=== PATIENT | female | born 1965 | race African-American/Black ===

== ENCOUNTER 2019-03-04 11:02 | Emergency (ER) | payer MEDICAID ==
[~2019-03-04] VITALS: Ht 160 cm; Wt 79.0 kg
[2019-03-04] MEDS ORDERED: ALBUTEROL (0.083%) 2.5MG/3ML NEB HHN STA (11:38)
[2019-03-04] MEDS ORDERED: METHYLPREDNISOLONE SOD SUCC 125 MG/2 ML VIAL IV STA (11:38)
[2019-03-04] MEDS ORDERED: IPRATROPIUM BROMIDE (0.02%) 0.5MG/2.5ML NEB HHN STA (11:38)
[2019-03-04 12:26] LABS: CHLORIDE 108 mEq/L (98-107)
[2019-03-04 13:00] VITALS: BP 140/80
[2019-03-04 13:14] LABS: BASOPHILS % 0.5 % (0.0-2.0); EOSINOPHILS % 2.8 % (0.0-5.0); HEMATOCRIT. 43.7 % (36.0-48.0); HEMOGLOBIN. 14.5 g/dL (12.0-16.0); LYMPHOCYTES % 42.8 % (20.0-50.0); MEAN CORPUSCULAR HEMOGLOBIN 28.5 pg (28.0-32.0); MEAN PLATELET VOLUME 8.4 fl (7.4-10.4); MONOCYTES % 6.4 % (2.0-8.0); NEUTROPHILS % 47.5 % (40.0-76.0); PLATELET 244 x1000/uL (130-400); RED BLOOD CELL COUNT 5.09 mill/uL (4.2-5.4); RED CELL DISTRIBUTION WIDTH 14.2 % (11.6-14.6)
== END 2019-03-04 14:51 | disposition home or self-care (01) ==
LOC: ER 11:02
DX: J45.901 Unspecified asthma with (acute) exacerbation (principal); F17.210 Nicotine dependence, cigarettes, uncomplicated; Z71.6 Tobacco abuse counseling
CPT/HCPCS: 36415; 71045; 80053; 85025; 93005; 94640; 96374; 99284; 99406; J2930; J7611

== ENCOUNTER 2019-03-08 06:12 | Emergency (ER) | payer MEDICAID ==
[~2019-03-08] VITALS: Ht 160 cm; Wt 79.0 kg
[2019-03-08] MEDS ORDERED: KETOROLAC 60MG/2ML VIAL IM ONE (06:45)
[2019-03-08 07:58] VITALS: BP 137/95
== END 2019-03-08 08:10 | disposition home or self-care (01) ==
LOC: ER 06:12
DX: J40 Bronchitis, not specified as acute or chronic (principal)
CPT/HCPCS: 96372; 99283; J1885; Z7610

== ENCOUNTER 2023-11-19 11:23 | Emergency (ER) | payer MEDICAID ==
[~2023-11-19] VITALS: Ht 165.1 cm; Wt 91.0 kg
[2023-11-19 11:37] VITALS: BP 132/82; PULSE 83; RESP 16; TEMP 98.5; O2SAT 97
[2023-11-19] MEDS ORDERED: NAPR500T7 MT (13:13)
== END 2023-11-19 14:12 | disposition home or self-care (01) ==
LOC: ER 11:23
DX: M79.674 Pain in right toe(s) (principal)
CPT/HCPCS: 99282

== ENCOUNTER 2025-06-21 16:05 | Emergency (ER) | payer MEDICAID, OTHER ==
[~2025-06-21] VITALS: Ht 160 cm; Wt 80.0 kg
[~2025-06-21 16:05] MED LIST: NAPR-1486 MT
[2025-06-21 16:19] VITALS: O2SAT 99
[2025-06-21] MEDS: MECLIZINE 25MG TABLET PO ONE (17:37)
[2025-06-21] MEDS: ACETAMINOPHEN 325MG TABLET PO ONE (17:52)
[2025-06-21 18:34] LABS: BASOPHILS % 0.9 % (0.0-2.0); EOSINOPHILS % 2.4 % (0.0-5.0); HEMATOCRIT. 42.4 % (36.0-48.0); HEMOGLOBIN. 14.0 g/dL (12.0-16.0); LYMPHOCYTES % 47.5 % (20.0-50.0); MEAN PLATELET VOLUME 8.0 fl (7.4-10.4); MONOCYTES % 8.9 % (2.0-8.0); NEUTROPHILS % 40.3 % (40.0-76.0); PLATELET 228 x1000/uL (130-400); RED BLOOD CELL COUNT 4.86 mill/uL (4.2-5.4); RED CELL DISTRIBUTION WIDTH 14.1 % (11.6-14.6)
[2025-06-21 18:46] LABS: CREATININE 1.1 mg/dL (0.6-1.0); UREA NITROGEN BLOOD 18 mg/dL (9-23)
[2025-06-21 18:47] LABS: TROPONIN I HIGH SENSITIVITY < 4 ng/L (3.0-34)
[2025-06-21 21:05] LABS: COLOR URINE YELLOW (YELLOW); GLUCOSE URINE NEGATIVE (NEGATIVE); KETONES URINE TRACE (NEGATIVE); LEUKOCYTE ESTERASE URINE 1+ (NEGATIVE); NITRITE URINE NEGATIVE (NEGATIVE); OCCULT BLOOD URINE NEGATIVE (NEGATIVE); PH URINE 5.0 (4.5-8.0); PROTEIN URINE NEGATIVE (NEGATIVE); SPECIFIC GRAVITY URINE 1.033 (1.005-1.030); UROBILINOGEN URINE 1.0 E.U./dL (0.2-1.0)
[2025-06-21 21:25] LABS: CLARITY URINE SL HAZY (CLEAR)
[2025-06-21 21:26] LABS: BACTERIA URINE TRACE; RBC URINE NONE SEEN /hpf (0-2); SQUAMOUS EPITHELIAL CELL URINE 2+ /lpf (RARE/1+)
[2025-06-21] MEDS ORDERED: TOPUD MT (22:39)
[2025-06-21] MEDS ORDERED: CEFP200T13 MT (22:39)
[2025-06-21] MEDS ORDERED: MECL-299 MT (22:39)
[2025-06-21 22:58] VITALS: BP 128/77; PULSE 85; RESP 15; TEMP 36.6; O2SAT 98
== END 2025-06-21 23:03 | disposition home or self-care (01) ==
LOC: ER 16:05
DX: R42 Dizziness and giddiness (principal); E11.9 Type 2 diabetes mellitus without complications; I10 Essential (primary) hypertension
CPT/HCPCS: 99284; 70450; 80048; 81003; 85025; 84484; 36415; 93005; J8597

== ENCOUNTER 2025-07-17 11:23 | Emergency (ER) | payer MEDICAID, OTHER ==
[~2025-07-17] VITALS: Ht 160 cm; Wt 82.0 kg
[~2025-07-17 11:23] MED LIST changes: +CEFP200T13 MT; +MECL-299 MT; +TOPUD MT
[2025-07-17 11:29] VITALS: O2SAT 99
[2025-07-17 12:18] LABS: BASOPHILS % 0.8 % (0.0-2.0); EOSINOPHILS % 2.8 % (0.0-5.0); HEMATOCRIT. 41.9 % (36.0-48.0); HEMOGLOBIN. 13.7 g/dL (12.0-16.0); LYMPHOCYTES % 46.4 % (20.0-50.0); MEAN PLATELET VOLUME 7.9 fl (7.4-10.4); MONOCYTES % 7.7 % (2.0-8.0); NEUTROPHILS % 42.3 % (40.0-76.0); PLATELET 232 x1000/uL (130-400); RED BLOOD CELL COUNT 4.84 mill/uL (4.2-5.4); RED CELL DISTRIBUTION WIDTH 14.5 % (11.6-14.6)
[2025-07-17 12:33] LABS: INR 1.0
[2025-07-17 12:35] LABS: CREATININE 1.1 mg/dL (0.6-1.0); ETHANOL BLOOD < 10 mg/dL (<10); UREA NITROGEN BLOOD 12 mg/dL (9-23)
[2025-07-17 12:36] LABS: ASPARTATE AMINOTRANSFERASE 22 IU/L (<34); BILIRUBIN DIRECT < 0.1 mg/dL (<=3.0); TROPONIN I HIGH SENSITIVITY < 4 ng/L (3.0-34)
[2025-07-17 12:37] LABS: BILIRUBIN TOTAL 0.4 mg/dL (0.1-1.0); PROTEIN TOTAL 6.9 g/dL (6.0-8.3)
[2025-07-17] MEDS: MECLIZINE 25MG TABLET PO STA (13:16)
[2025-07-17] MEDS ORDERED: ONDANSETRON HCL 4MG/2ML INJ IV ONE (13:30)
[2025-07-17] MEDS: METOCLOPRAMIDE HCL 10MG/2ML VIAL IV ONE (14:13)
[2025-07-17] MEDS: SODIUM CHLORIDE 0.9% 1,000 ML IV ONE (14:14)
[2025-07-17 14:15] LABS: CLARITY URINE CLEAR (CLEAR); COLOR URINE DARK YELLOW (YELLOW); GLUCOSE URINE NEGATIVE (NEGATIVE); KETONES URINE TRACE (NEGATIVE); LEUKOCYTE ESTERASE URINE TRACE (NEGATIVE); NITRITE URINE NEGATIVE (NEGATIVE); OCCULT BLOOD URINE NEGATIVE (NEGATIVE); PH URINE 5.0 (4.5-8.0); PROTEIN URINE NEGATIVE (NEGATIVE); SPECIFIC GRAVITY URINE 1.026 (1.005-1.030); UROBILINOGEN URINE 0.2 E.U./dL (0.2-1.0)
[2025-07-17 14:16] LABS: *AMPHETAMINES SCREEN URINE NEGATIVE (NEGATIVE); *BARBITURATES SCREEN URINE NEGATIVE (NEGATIVE); *BENZODIAZEPINES SCREEN URINE NEGATIVE (NEGATIVE); *COCAINE SCREEN URINE NEGATIVE (NEGATIVE); METHADONE URINE SCREEN NEGATIVE (NEGATIVE); OPIATES URINE SCREEN NEGATIVE (NEGATIVE); PHENCYCLIDINE URINE SCREEN NEGATIVE (NEGATIVE)
[2025-07-17 14:17] LABS: CANNABINOID URINE SCREEN NEGATIVE (NEGATIVE); ECSTASY MDMA SCREEN URINE NEGATIVE (NEGATIVE)
[2025-07-17 14:27] LABS: SQUAMOUS EPITHELIAL CELL URINE 1+ /lpf (RARE/1+)
[2025-07-17 14:28] LABS: RBC URINE 0-2 /hpf (0-2); WBC URINE 0-2 /hpf (0-2)
[2025-07-17 14:31] LABS: BACTERIA URINE NONE SEEN
[2025-07-17 15:00] VITALS: BP 120/79; PULSE 88; RESP 16; TEMP 36.9; O2SAT 99
[2025-07-17] MEDS ORDERED: MECL-299 MT (15:30)
== END 2025-07-17 15:44 | disposition home or self-care (01) ==
LOC: ER 11:23
DX: R42 Dizziness and giddiness (principal); J45.909 Unspecified asthma, uncomplicated; Z87.440 Personal history of urinary (tract) infections; Z87.891 Personal history of nicotine dependence; Z79.899 Other long term (current) drug therapy
CPT/HCPCS: 80076; 80305; 80048; 81003; 80320; 83880; 83690; 83735; 85025; 85610; 86592; 87210; 84484; 36415; 71045; 70450; 93005; 96361; 96374; 99285; J8597; J2765; J7030; G0480

== ENCOUNTER 2025-09-19 15:35 | Emergency (ER) | payer OTHER ==
[~2025-09-19] VITALS: Ht 170.2 cm; Wt 95.0 kg
[2025-09-19 15:42] VITALS: O2SAT 97
[2025-09-19] MEDS: KETOROLAC 30MG/ML VIAL IM ONE (19:12)
[2025-09-19] MEDS: LIDOCAINE 5% PATCH TOP STA (19:12)
[2025-09-19 20:23] VITALS: BP 146/81; PULSE 80; RESP 16; TEMP 36.7; O2SAT 98
[2025-09-19] MEDS ORDERED: KETO10TA2 MT (20:45)
[2025-09-19] MEDS ORDERED: CYCL10TA21 MT (20:45)
[2025-09-19] MEDS ORDERED: LIDO700A30 TP (20:45)
== END 2025-09-19 20:50 | disposition home or self-care (01) ==
LOC: ER 15:35
DX: M25.511 Pain in right shoulder (principal); M25.512 Pain in left shoulder; M50.30 Other cervical disc degeneration, unspecified cervical region
CPT/HCPCS: 99283; 72040; 96372; J1885